=== PATIENT | female | born 1990 | race Caucasian/White ===

== ENCOUNTER 2017-08-28 06:59 | Emergency (ER) | payer SELFPAY ==
[2017-08-28] MEDS ORDERED: Ketorolac INJ* 30 MG/ML 1 ML VIAL IV PUSH ONE (08:04)
--- NOTE | 2017-08-28 09:11 | RAD ---
HISTORY: Right shoulder pain COMPARISONS: None VIEWS: 5, Frontal internal rotation, external rotation, outlet, and axillary views of the right shoulder FINDINGS: BONE DENSITY: Normal. BONES: There is no displaced fracture. JOINTS: There is no arthropathy. ALIGNMENT: There is no dislocation. SOFT TISSUES: Unremarkable. OTHER FINDINGS: None. IMPRESSION: NO ACUTE OSSEOUS INJURY. IF SYMPTOMS PERSIST, RECOMMEND REPEAT IMAGING.
[2017-08-28 10:27] VITALS: BP 114/85
--- NOTE | 2017-08-29 18:16 | ED ---
Surjit Aldridge Angela, scribed for Stas Elizabeth MD on 08/28/17 at 0804 . Upper Extremity Pain - HPI Summary HPI Summary: This pt is a 27 y/o female presenting to [facility] c/o right shoulder pain since yesterday. 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 She notes her injury happened 12-18 hours ago. Pt states that her pain is aggravated with abduction. Denies any PMHx. - History of Current Complaint Chief Complaint: EDShoulderCbethvicGino Stated Complaint: SHOULDER PAIN Time Seen by Provider: 08/28/17 07:56 Hx Obtained From: Patient Mechanism Of Injury: Blunt Trauma Onset/Duration: Started Hours Ago, Traumatic, Still Present Timing: Lasting Hours Severity Currently: Moderate Pain Location: Shoulder - right Aggravating Factor(s): Abduction Alleviating Factor(s): Nothing Associated Signs & Symptoms: Positive: Negative - Allergies/Home Medications Allergies/Adverse Reactions: Allergies Allergy/AdvReac Type Severity Reaction Status Date / Time No Known Allergies Allergy Verified 08/28/17 07:11 PMH/Surg Hx/FS Hx/Imm Hx Endocrine/Hematology History: Denies: Hx Diabetes Cardiovascular History: Denies: Hx Hypertension Infectious Disease History: No Infectious Disease History: Denies: Traveled Outside the [place] in Last 30 Days - Family History Known Family History: Positive: Hypertension - Mother Negative: Cardiac Disease, Diabetes - Social History Alcohol Use: None Substance Use Type: Reports: None Smoking Status (MU): Never Smoked Tobacco Review of Systems Negative: Fever, Chills Eyes: Negative ENT: Negative Cardiovascular: Negative Musculoskeletal: Other - right shoulder pain Skin: Negative Neurological: Negative All Other Systems Reviewed And Are Negative: Yes Physical Exam - Summary Physical Exam Summary: VITAL SIGNS: Reviewed. GENERAL: Patient is a well-developed and nourished female who is lying comfortable in the stretcher. Patient is not in any acute respiratory distress. HEAD AND FACE: No signs of trauma. No ecchymosis, hematomas or skull depressions. No sinus tenderness. EYES: PERRLA, EOMI x 2, No injected conjunctiva, no nystagmus. EARS: Hearing grossly intact. Ear canals and tympanic membranes are within normal limits. MOUTH: Oropharynx within normal limits. NECK: Supple, trachea is midline, no adenopathy, no JVD, no carotid bruit, no c- spine tenderness, neck with full ROM. CHEST: Symmetric, no tenderness at palpation LUNGS: Clear to auscultation bilaterally. No wheezing or crackles. CVS: Regular rate and rhythm, S1 and S2 present, no murmurs or gallops appreciated. ABDOMEN: Soft, non-tender. No signs of distention. No rebound no guarding, and no masses palpated. Bowel sounds are normal. EXTREMITIES: no edema, no cyanosis or clubbing. Decreased ROM of the right shoulder. No ecchymosis, no deformity, no hematoma. Good pulses and good capillary refill. NEURO: Alert and oriented x 3. No acute neurological deficits. Speech is normal and follows commands. SKIN: Dry and warm Triage Information Reviewed: Yes Vital Signs On Initial Exam: Initial Vitals Temp Pulse Resp BP Pulse Ox 97.0 F 85 16 107/75 98 08/28/17 07:07 08/28/17 07:07 08/28/17 07:07 08/28/17 07:07 08/28/17 07:07 Vital Signs Reviewed: Yes Diagnostics - Vital Signs Vital Signs Temp Pulse Resp BP Pulse Ox 08/28/17 07:07 97.0 F 85 16 107/75 98 - Laboratory Lab Statement: Any lab studies that have been ordered have been reviewed, and results considered in the medical decision making process. - Radiology Right shoulder XR Xray Interpretation: No Acute Changes - IMPRESSION: No acute osseous injury. If symptoms persist, recommend repeat imaging. Dr. Elizabeth has reviewed this radiology report. Radiology Interpretation Completed By: Radiologist Re-Evaluation - Re-Evaluation First Eval Re-Evaluation Time: 10:03 Comment: I reviewed the XR results with the pt. Course/Dx - Course Assessment/Plan: This pt is a 27 y/o female presenting to [facility] c/o right shoulder pain since yesterday. 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 She notes her injury happened 12-18 hours ago. Pt states that her pain is aggravated with abduction. Denies any PMHx. Right shoulder XR: No acute osseous injury. If symptoms persist, recommend repeat imaging. Pt was given Toradol for the pain and after this medication her pain has improved. At this point the pt was placed on a shoulder immobilizer. She will be discharged home with follow up from orthopedics. Pt understands and agrees with the plan. Pt is hemodynamically stable, alert and oriented x3. - Diagnoses Provider Diagnoses: Shoulder pain Discharge - Discharge Plan Condition: Stable Disposition: HOME Patient Education Materials: Shoulder Pain (ED) Forms: *Work Release Referrals: [facility] PHYSICIAN REFERRAL [Outside] - 3 Days No Primary Care Phys,NOPCP [Primary Care Provider] - Gilberto Lauren MD [Medical Doctor] - 3 Days Additional Instructions: use the sling for comfort. Please follow up with orthopedics and your primary care provider. RETURN TO THE ED FOR ANY WORSENING SYMPTOMS. The documentation as recorded by the Surjit devine Angela accurately reflects the service I personally performed and the decisions made by me, Stas Elizabeth MD.
== END 2017-08-28 10:15 | disposition home or self-care (01) ==
LOC: ED 06:59
DX: M25.511 Pain in right shoulder (principal); X50.0XXA Overexertion from strenuous movement or load, initial encounter; Y92.9 Unspecified place or not applicable
CPT/HCPCS: 96374; 99282; J1885

== ENCOUNTER 2017-11-18 22:24 | Emergency (ER) | payer SELFPAY ==
[2017-11-18 23:06] LABS: ABS Basophils 0 10^3/ul (0-0.2); ABS Eosinophils 0.1 10^3/ul (0-0.6); ABS Lymphocytes 2.5 10^3/ul (1.0-4.8); ABS Monocytes 0.6 10^3/ul (0-0.8); ABS Neutrophils 6.5 10^3/ul (1.5-7.7); ABS Nucleated RBC 0 10^3/ul; Eosinophil % 0.6 % (0-6); Hematocrit 41 % (35-47); Lymphocyte % 25.7 % (25-47); Mean Corpuscular HGB Conc 34 g/dl (31-36); Mean Corpuscular Hemoglobin 31 pg (27-31); Mean Corpuscular Volume 92 fL (80-97); Nucleated Red Blood Cells % 0.1; Platelet Count 327 10^3/ul (150-450); Red Blood Count 4.48 10^6/ul (4.0-5.4); Red Cell Distribution Width 13 % (10.5-15); White Blood Count 9.6 10^3/ul (3.5-10.8)
--- NOTE | 2017-11-19 01:35 | ED ---
GI/ HPI - HPI Summary HPI Summary: Patient is a 27-year-old female who presents emergency department for vaginal bleeding 2-1/2 weeks. She states her periods are typically regular. She states she is not due until start her period until this week. Associated symptoms of intermittent pelvic cramping. Also notes she's been passing blood clots. Denies other vaginal discharge or concern for STDs. Patient states that her [employer] is currently on maternity leave. Patient otherwise denies chest pain, shortness breath, lightheadedness or dizziness. No past medical history. Symptoms are moderate in severity. No current modifying factors. - History of Current Complaint Chief Complaint: EDVaginalBleeding Time Seen by Provider: 11/18/17 22:40 Stated Complaint: VAGINAL BLEEDING Hx Obtained From: Patient Pain Intensity: 0 - Allergy/Home Medications Allergies/Adverse Reactions: Allergies Allergy/AdvReac Type Severity Reaction Status Date / Time No Known Allergies Allergy Verified 11/18/17 22:31 PMH/Surg Hx/FS Hx/Imm Hx Previously Healthy: Yes Endocrine/Hematology History: Denies: Hx Diabetes Cardiovascular History: Denies: Hx Hypertension Infectious Disease History: No Infectious Disease History: Denies: Traveled Outside the [place] in Last 30 Days - Family History Known Family History: Positive: Hypertension - Mother Negative: Cardiac Disease, Diabetes - Social History Occupation: Unemployed Lives: With Family Alcohol Use: Weekly Substance Use Type: Reports: Marijuana Smoking Status (MU): Never Smoked Tobacco Review of Systems Constitutional: Negative Cardiovascular: Negative Negative: Palpitations, Chest Pain Respiratory: Negative Negative: Shortness Of Breath Negative: Abdominal Pain, Vomiting, Diarrhea, Nausea Positive: other - vaginal bleeding. Negative: discharge Neurological: Negative All Other Systems Reviewed And Are Negative: Yes Physical Exam Triage Information Reviewed: Yes Vital Signs On Initial Exam: Initial Vitals Temp Pulse Resp BP Pulse Ox 97.7 F 88 18 124/78 99 11/18/17 22:27 11/18/17 22:27 11/18/17 22:27 11/18/17 22:27 11/18/17 22:27 Vital Signs Reviewed: Yes Appearance: Positive: Well-Appearing - Patient sitting up in no acute distress. Pleasant. Skin: Positive: Warm, Dry Head/Face: Positive: Normal Head/Face Inspection Eyes: Positive: Normal, PEDRITO Neck: Positive: Supple Respiratory/Lung Sounds: Positive: Clear to Auscultation, Breath Sounds Present Cardiovascular: Positive: Normal, RRR Abdomen Description: Positive: Other: - Abdomen is soft nontender throughout. Pelvic Exam: Positive: External Exam Normal, Other - Exam performed with patient 's nurse, Kaylyn. External genitalia is unremarkable. Speculum exam shows a small amount of bleeding with clots from the cervix. No discharge noted. Diagnostics - Vital Signs Vital Signs Temp Pulse Resp BP Pulse Ox 11/18/17 22:27 97.7 F 88 18 124/78 99 - Laboratory Lab Results: Lab Results 11/18/17 11/18/17 Range/Units 22:59 22:59 WBC 9.6 (3.5-10.8) 10^3/ul RBC 4.48 (4.0-5.4) 10^6/ul Hgb 14.0 (12.0-16.0) g/dl Hct 41 (35-47) % MCV 92 (80-97) fL MCH 31 (27-31) pg MCHC 34 (31-36) g/dl RDW 13 (10.5-15) % Plt Count 327 (150-450) 10^3/ul MPV 8.0 (7.4-10.4) um3 Neut % (Auto) 67.4 (38-83) % Lymph % (Auto) 25.7 (25-47) % [place] % (Auto) 6.2 (0-7) % Eos % (Auto) 0.6 (0-6) % Baso % (Auto) 0.1 (0-2) % Absolute Neuts (auto) 6.5 (1.5-7.7) 10^3/ul Absolute Lymphs (auto) 2.5 (1.0-4.8) 10^3/ul Absolute Monos (auto) 0.6 (0-0.8) 10^3/ul Absolute Eos (auto) 0.1 (0-0.6) 10^3/ul Absolute Basos (auto) 0 (0-0.2) 10^3/ul Absolute Nucleated RBC 0 10^3/ul Nucleated RBC % 0.1 Beta HCG, Quant < 0.60 mIU/mL Result Diagrams: 11/18/17 22:59 Lab Statement: Any lab studies that have been ordered have been reviewed, and results considered in the medical decision making process. GIGU Course/Dx - Course Course Of Treatment: Patient presenting with ongoing vaginal bleeding. She was afebrile with stable vital signs. Check CBC, beta hCG and pelvic ultrasound. Patient has mild bleeding on exam. Pelvic u/s is negative for acute findings, reading per night radiologist. CBC shows a stable H and H of 14 and 41%. Negative . Results discussed. Pt. was given info for oncall [employer] for close f.u for further evaluation and treatment of DUB. Pt. declinies STI testing tonight. Pt. understands and agrees with plan. - Diagnoses Differential Diagnoses - Female: Ectopic , , Pelvic Inflammatory Disease Provider Diagnoses: Abnormal uterine bleeding Discharge - Sign-Out/Discharge Documenting (check all that apply): Discharge/Admit/Transfer - Discharge Plan Condition: Good Disposition: HOME Patient Education Materials: Dysfunctional Uterine Bleeding (ED) Referrals: Tory Mccray MD [Medical Doctor] - No Primary Care Phys,NOPCP [Primary Care Provider] - Additional Instructions: Call Dr. Mccray's office tomorrow to schedule an appointment Return to ER if symptoms change or worsen - Billing Disposition and Condition Condition: GOOD Disposition: HOME
[2017-11-19 01:48] VITALS: BP 118/79
--- NOTE | 2017-11-19 16:13 | RAD ---
INDICATION: Dysfunctional uterine bleeding COMPARISON: None TECHNIQUE: Longitudinal and transverse transabdominal scans of the pelvis were obtained. FINDINGS: Uterus: The uterus is normal in size. There are no focal masses. The uterus measures 8.4 x 3.4 x 4.9 cm. Endometrial thickness: The endometrial thickness is measured at 0.5 cm. . Free fluid: There is no significant free fluid . Ovaries: The ovaries are normal in size. The right ovary measures 3.6 x 2.7 x 2.1 cm. The left ovary measures 3.0 x 2.5 x 3.2 cm. . Doppler interrogation demonstrates flow to each ovary. Other: None IMPRESSION: NEGATIVE EXAMINATION.
== END 2017-11-19 01:47 | disposition home or self-care (01) ==
LOC: ED 22:24
DX: N93.9 Abnormal uterine and vaginal bleeding, unspecified (principal)
CPT/HCPCS: 36415; 76856; 84702; 85025; 99282

== ENCOUNTER 2018-03-17 12:44 | Emergency (ER) | payer SELFPAY ==
--- NOTE | 2018-03-17 15:03 | ED ---
Throat Pain/Nasal Congestion - HPI Summary HPI Summary: Patient is an 19-year-old female presenting to the ED with chief complaint of left-sided throat pain and swelling as well as dysphasia and odynophagia 3 days. She states the areas been slowly getting worse. She endorses erythema and white tonsillar exudates to the left side only. She continues to eat and drink, however with a mild amount of discomfort. She denies any fever, however endorses sweats and chills intermittently. She denies any other symptoms including headache, visual changes, neck pain, chest pain or shortness of breath. 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 - History of Current Complaint Chief Complaint: EDThroatPain Time Seen by Provider: 03/17/18 12:49 Hx Obtained From: Patient Onset/Duration: Sudden Onset Severity: Moderate Associated Signs And Symptoms: Positive: Dysphagia. Negative: Drooling, Wheezing, Hoarseness - Epiglottits Risk Factors Epiglottis Risk Factors: Negative - 6 for - Allergies/Home Medications Allergies/Adverse Reactions: Allergies Allergy/AdvReac Type Severity Reaction Status Date / Time No Known Allergies Allergy Verified 03/17/18 12:48 PMH/Surg Hx/FS Hx/Imm Hx Previously Healthy: Yes Endocrine/Hematology History: Denies: Hx Diabetes Cardiovascular History: Denies: Hx Hypertension - Immunization History Hx Pertussis Vaccination: No Immunizations Up to Date: Yes Infectious Disease History: No Infectious Disease History: Denies: Traveled Outside the [place] in Last 30 Days - Family History Known Family History: Positive: Hypertension - Mother Negative: Cardiac Disease, Diabetes - Social History Occupation: Employed Full-time Lives: With Family Alcohol Use: Weekly Hx Substance Use: Yes Substance Use Type: Reports: Marijuana Hx Tobacco Use: No Smoking Status (MU): Never Smoked Tobacco Review of Systems Positive: Chills. Negative: Fever, Fatigue, Skin Diaphoresis, Other Negative: Photophobia, Blurred Vision Positive: Sore Throat. Negative: Ear Ache, Nasal Discharge Negative: Palpitations, Chest Pain Negative: Shortness Of Breath, Cough Negative: Arthralgia, Myalgia Negative: Rash Neurological: Negative Negative: Headache, Weakness, Syncope All Other Systems Reviewed And Are Negative: Yes Physical Exam Triage Information Reviewed: Yes Vital Signs On Initial Exam: Initial Vitals Temp Pulse Resp BP Pulse Ox 97.0 F 96 14 129/86 99 03/17/18 12:46 03/17/18 12:46 03/17/18 12:46 03/17/18 12:46 03/17/18 12:46 Vital Signs Reviewed: Yes Appearance: Positive: Well-Appearing, Well-Nourished Skin: Positive: Warm, Skin Color Reflects Adequate Perfusion Head/Face: Positive: Normal Head/Face Inspection Eyes: Positive: EOMI, PEDRITO, Conjunctiva Clear ENT: Positive: Hearing grossly normal, Pharyngeal erythema, Tonsillar swelling, Tonsillar exudate, Uvula midline Neck: Positive: Supple, No Lymphadenopathy Respiratory/Lung Sounds: Positive: Clear to Auscultation, Breath Sounds Present Cardiovascular: Positive: RRR, Pulses are Symmetrical in both Upper and Lower Extremities Musculoskeletal: Positive: Normal, Strength/ROM Intact Neurological: Positive: Sensory/Motor Intact, Alert, Oriented to Person Place, Time, Speech Normal Psychiatric: Positive: Normal, Affect/Mood Appropriate AVPU Assessment: Alert Diagnostics - Vital Signs Vital Signs Temp Pulse Resp BP Pulse Ox 03/17/18 12:46 97.0 F 96 14 129/86 99 - Laboratory Lab Results: Lab Results 03/17/18 Range/Units 13:13 Group A Strep Rapid Negative (Negative) Lab Statement: Any lab studies that have been ordered have been reviewed, and results considered in the medical decision making process. EENT Course/Dx - Course Course Of Treatment: On evaluation, patient is noted to have left-sided tonsillar exudates, pharyngeal erythema, tonsillar swelling. Airway remains patent. This does not appear to be a peritonsillar abscess. She is given prednisone 50 mg once daily 5 days as well as clindamycin 3 times daily 7 days for a bacterial tonsillitis. Strep obtained is negative. Patient she just left overnight is okay for discharge. Strict return precautions are given and she is encouraged fluids. - Diagnoses Provider Diagnoses: Tonsillitis Discharge - Sign-Out/Discharge Documenting (check all that apply): Patient Departure - Discharge Plan Condition: Stable Disposition: HOME Prescriptions: Clindamycin Cap(NF) [Clindamycin Cap 300 mg Cap(NF)] 300 mg PO Q8H #21 cap predniSONE TAB* [Deltasone TAB*] 50 mg PO DAILY #5 tab MDD 1 Patient Education Materials: Tonsillitis (ED) Referrals: No Primary Care Phys,NOPCP [Primary Care Provider] - Additional Instructions: Prednisone once daily x 5 days Clindamycin three times daily x 7 days Drink plenty of fluids Return to the ED if any symptoms become worse - Billing Disposition and Condition Condition: STABLE Disposition: Home
[2018-03-17 16:05] VITALS: BP 129/82
== END 2018-03-17 15:15 | disposition home or self-care (01) ==
LOC: ED 12:44
DX: J03.90 Acute tonsillitis, unspecified (principal)
CPT/HCPCS: 87651; 99282